=== PATIENT | male | born 2000 | race Two or more races ===

== ENCOUNTER 2024-06-06 11:54 | Emergency (ER) | payer MEDICAID, SELFPAY ==
[2024-06-06 12:14] VITALS: BP 158/92; PULSE 95; RESP 16; TEMP 36.6; O2SAT 99; BMI 30.9
--- NOTE | 2024-06-06 12:27 | EKG_ITS ---
[facility] Test Date: 2024-06-06 Pat Name: GWENDOLYN RICHARDSON Department: Room: - Gender: Male [employer] Member: : 2000 Requested By: Maci Hernandez Order Number: [id number] Reading MD: Maci Hernandez Measurements Intervals [place] Rate: 87 P: 36 IA: 149 QRS: 43 QRSD: 98 T: 11 QT: 337 QTc: 408 Interpretive Statements SINUS RHYTHM WITH SINUS ARRHYTHMIA NONSPECIFIC T-WAVE ABNORMALITY No previous ECG available for comparison /store/S0/[id number]/ecg/[id number].pdf
--- NOTE | 2024-06-06 12:27 | XR_ITS ---
Examination: CT brain head without contrast. 2-D sagittal coronal reconstructions Date and time of exam:June 06, 2024 1232 hours INDICATIONS: Headaches worse the last 2 weeks CTDI: vol (mGy):50.8 DLP: (mGycm):1151 Technique: Multiple CT axial sections of the brain have been obtained, 5 mm slice thickness. Contrast has not been administered. 2-D sagittal, coronal reconstructions have been obtained Low dose protocols were performed. One or more of the following dose reduction techniques were used; automated exposure control, adjustment of the mA and/or KV according to patient size, use of iterative reconstruction technique. Findings: No significant ventricular enlargement. Intra-axial or extra-axial hemorrhage density is not seen. No mass effect or midline shift Basal cisterns are not remarkable. Fourth ventricle is midline. Cranial vault intact. Impression: Negative for acute hemorrhage, mass effect or midline shift Significant chronic pansinusitis
--- NOTE | 2024-06-06 12:28 | EDNOTE_ITS ---
<Statement entered by Danii Hernández MD - 06/06/24 15:24> As co-signing physician, I was present and available for consult prn. I concur with the plan and care as documented by the midlevel provider. ED Headache RME/HPI General Chief Complaint: Headache Stated Complaint: HEADACHE FOR 1 MONTH, WORSE x 2 WEEKS Time Seen by Provider: 06/06/24 12:03 Arrival date/time: 06/06/24 11:54 RME / HPI RME / HPI Narrative: 23-year-old male patient with no significant medical history, came in for evaluation regarding headache. Patient has been having headache for the last 1 month, getting worse for the last 2 weeks. Described as pulsating/stabbing pain, on multiple different locations. Patient denies any blurry vision denies any vomiting. Patient also complained of on and off stabbing pain to the chest on the left side for several weeks lasting for few seconds. Patient was seen by PCP and currently taking sumatriptan with no relief. Denies any fever denies any head trauma patient is ambulatory. Related Data Previous Rx's ?Medication ?Instructions ?Recorded amoxicillin 875 mg-potassium 1 tab PO BID #14 tabs 06/06/24 clavulanate 125 mg tablet fexofenadine 60 mg-pseudoephedrine 1 tab PO Q12H PRN nasal congestion 06/06/24 ER 120 mg tablet,ext.release,12 hr #14 tabs (Monica-D 12 Hour) Allergies Allergy/AdvReac Type Severity Reaction Status Date / Time No Known Allergies Allergy Verified 06/06/24 11:56 Review of Systems Review of Systems Narrative Review of Systems: Review of system reviewed and within normal limits except mentioned in HPI ED Exam Narrative Physical exam: VITAL SIGNS: Reviewed. GENERAL APPEARANCE: Alert and interactive, follows commands, no acute distress, HEAD AND FACE: Non-traumatic. ENT: PERRL, pink conjunctivitis, eyelid no trauma, Mucous membrane moist. NECK: Supple, nontender, no nuchal rigidity. CHEST: No tenderness, no crepitus, no paradoxical movement, no retractions. LUNGS: Clear, well ventilated, symmetric, no rales, no wheezing, no ronchi, no stridor, good breath sounds bilaterally. HEART: Regular rate, regular rhythm, no murmur, no gallops. ABDOMEN: Soft, positive bowel sounds, nondistended, no guarding, nontender, no rebound, no masses, RECTAL: Deferred. GENITAL: Deferred. NEUROLOGICAL: Gross motor function intact sensory function intact, Appropriate for age. MUSCULOSKELETAL: low back nontender, full range of motion. EXTREMITIES: Nontender, full range of motion. SKIN: Color pink, dry, no rash, no lacerations, no abrasions, no contusions. LYMPHATICS: Deferred. Course Quality Measures none Orders Category Date Time Status EKG (ED ONLY) *Do not use* NOW Care 06/06/24 12:[address] head/brain wo con Stat Exams 06/06/24 12:27 Completed EKG (ED Only) Stat Exams 06/06/24 12:27 Draft Acetaminophen Tab [Tylenol ES Tab] Med 06/06/24 12:27 Discontinued 1,000 mg PO X1 ONE DiphenhydrAMINE [Benadryl] Med 06/06/24 12:27 Discontinued 50 mg PO X1 ONE Ketorolac Inj [Toradol Inj] Med 06/06/24 13:57 Discontinued 30 mg IM X1 ONE Metoclopramide [Reglan] Med 06/06/24 12:27 Discontinued 10 mg PO X1 ONE Vital Signs Vital signs: Vital Signs Temperature 97.9 F 06/06/24 12:14 Pulse Rate 95 06/06/24 12:14 Respiratory Rate 16 06/06/24 12:14 Blood Pressure 158/92 H 06/06/24 12:14 Pulse Oximetry (%) 99 06/06/24 12:14 Oxygen Delivery Method Room Air 06/06/24 12:14 Headache MDM Narrative MDM Narrative:: 23-year-old male patient with no significant medical history, came in for evaluation regarding headache. Patient has been having headache for the last 1 month, getting worse for the last 2 weeks. Described as pulsating/stabbing pain, on multiple different locations. Patient denies any blurry vision denies any vomiting. Patient also complained of on and off stabbing pain to the chest on the left side for several weeks lasting for few seconds. Patient was seen by PCP and currently taking sumatriptan with no relief. Denies any fever denies any head trauma patient is ambulatory. EKG showed normal sinus rhythm, no ST segment elevation depression noted, ventricular rate of [address] scan of the head came back with chronic pansinusitis otherwise unremarkable. Patient will be sent home on Augmentin and Monica-D. Patient data External records reviewed:: None Clinical information provided by:: patient Social determinants that could affect healthcare access:: none Patient has the following chronic illnesses:: None How is presenting disease/condition affected by chronic disease/condition?: no chronic disease Evaluation data The following diagnostics were reviewed and interpreted by me:: radiology exam(s) and EKG tracing(s) Lab and/or radiology exams considered but not ordered:: None Interpretation Summary: See above in MDM Medications / Prescriptions Medications or Prescriptions considered but not ordered:: None Medication administrations:: Medication Administration History Discontinued Medications Acetaminophen (Acetaminophen 500 Mg Tablet) 1,000 mg PO X1 ONE Stop: 06/06/24 12:28 Last Admin: 06/06/24 13:05 Dose: 1,000 mg Documented By: TM Diphenhydramine HCl (Diphenhydramine 25 Mg Capsule) 50 mg PO X1 ONE Stop: 06/06/24 12:28 Last Admin: 06/06/24 13:08 Dose: Not Given Documented By: TM Non-Admin Reason: Duplicate Medication on eMAR Admin: 06/06/24 13:06 Dose: 50 mg Documented By: TM Ketorolac Tromethamine (Ketorolac Inj 60 Mg/2 Ml Vial) 30 mg IM X1 ONE Stop: 06/06/24 13:58 Last Admin: 06/06/24 14:06 Dose: 30 mg Documented By: OA Metoclopramide HCl (Metoclopramide 5 Mg Tablet) 10 mg PO X1 ONE Stop: 06/06/24 12:28 Last Admin: 06/06/24 13:05 Dose: 10 mg Documented By: TM Tylenol Reglan Toradol Benadryl with significant improvement of headache Consultations Consultation(s) initiated? (list below): No Diagnosis Differential diagnosis headache: migraine, tension headache and other (Pansinusitis, intermittent chest pain) Most likely diagnosis given after review of the tests above:: Pansinusitis Admission Indicated Admission indicated?: not indicated Explain why admission is indicated or not indicated:: Stable Admission Request Was there a request for admission?: No Disposition Plan Disposition Plan: Discharge Discharge Attestation Discharge Attestation: The patient was given an opportunity to ask questions and understood the discharge instructions. Discharge instructions specifically effects, indications for sooner follow up or return to the emergency department, and the expected course of current diagnosis. Patient condition: Stable Discharge Plan Plan Patient Disposition: HOME (Self Care) Disposition Comment: stable Prescriptions/Referrals Prescriptions/Med Rec: New amoxicillin-pot clavulanate 875-125 mg tablet 1 tab PO BID Qty: 14 0RF fexofenadine-pseudoephedrine [Monica-D 12 Hour] 60-120 mg tablet extended release 12 hr 1 tab PO Q12H PRN (Reason: nasal congestion) Qty: 14 0RF Referrals: Yadiel Khanna MD [Primary Care Provider] - In 1 week Problem List Clinical Impression: Headache, Pansinusitis Patient/Caregiver Discharge Instructions Discharge Activity: activity as tolerated Education Materials: Causes of Sinusitis Additional Instructions: Thank you for the opportunity for serving you today. You are stable for discharged . You are advised to: Follow-up with your PCP in 1 to 2 days Return to ED for worsening of symptoms Increase oral fluids Take medication as prescribed Print Language: Bol[place]ian Stand Alone Forms: Michaela Award Info., Patient Portal Info Letter DAVE/FABIÁN Supervising Physician DAVE/FABIÁN Supervising Physician: MD Edgar
[2024-06-06] MEDS: ACETAMINOPHEN 500 MG TABLET 1000 MG PO (13:05)
[2024-06-06] MEDS: METOCLOPRAMIDE 5 MG TABLET 10 MG PO (13:05)
[2024-06-06] MEDS: DiphenhydrAMINE 25 MG CAPSULE 50 MG PO (13:06)
[2024-06-06] MEDS: KETOROLAC INJ 60 MG/2 ML VIAL 30 MG IM (14:06)
== END 2024-06-06 15:06 | disposition home or self-care (01) ==
PROVIDERS: Emergency Provider Emergency Medicine; PCP Family Medicine
DX: J32.4 Chronic pansinusitis (principal); I49.8 Other specified cardiac arrhythmias
CPT/HCPCS: 70450; 93005; 96372; 99284; J1885; A9270